=== PATIENT | female | born 1955 | race Hispanic/Latino ===

== ENCOUNTER 2020-10-21 11:58 | Emergency (ER) | payer OTHER ==
[2020-10-21 13:14] VITALS: BP 164/88
--- NOTE | 2020-10-21 13:42 | Event Note ---
ED Screening Note ED Screening Note: Patient is a 65-year-old female presents emergency room stating that she had COVID-19 in February She states that for a week she has had headache, fatigue, ear pain, cough, shortness of breath She denies any chest pain, fever, vomiting, diarrhea She states that for the last 2 to 3 days she has felt off balance She states that today she had tingling in her bilateral upper extremities and bilateral lower extremities She denies any vision changes, speech disturbance, unilateral weakness Past medical history of hypertension, hyperlipidemia, CVA in 2019 which she reports affected her left side This initial assessment/diagnostic orders/clinical plan/treatment(s) is/are subject to change based on patients health status, clinical progression and re- assessment by fellow clinical providers in the ED. Further treatment and workup at subsequent clinical providers discretion. Patient/guardian urged not to elope from the ED as their condition may be serious if not clinically assessed and managed. Initial orders include: labs, xr, ekg, ct head
--- NOTE | 2020-10-21 14:23 | XRay Report ---
CHEST 2 VIEWS INDICATION / CLINICAL INFORMATION: SOB, cough. COMPARISON: None available. FINDINGS: SUPPORT DEVICES: None. HEART / MEDIASTINUM: No significant abnormality. LUNGS / PLEURA: No significant pulmonary or pleural abnormality. No pneumothorax. ADDITIONAL FINDINGS: No significant additional findings. IMPRESSION: 1. No acute findings. Signer Name: Neville Casas MD Signed: 10/21/2020 2:18 PM Workstation Name: [id number]
--- NOTE | 2020-10-21 14:49 | Cat Scan Report ---
CT head/brain wo con INDICATION / CLINICAL INFORMATION: 65 years Female; feeling off balanace, tingling in the BUE/BLE. TECHNIQUE: Routine CT head without contrast. All CT scans at this location are performed using CT dos e reduction for ALARA by means of automated exposure control. COMPARISON: None. FINDINGS: There is extensive cerebral white matter disease most consistent with microvascular angiopathy. The v entricular system is within normal limits in size and configuration. The motion degrades the image qu ality. However, there is no clear CT evidence of acute intracranial hemorrhage or significant mass ef fect. There is increased attenuation along the visualized proximal intracranial vessels particularly the M1 segment though the findings appear to be related to atherosclerotic disease. ORBITS: No significant abnormality of visualized orbits. SINUSES / MASTOIDS: No significant abnormality in the visualized paranasal sinuses or mastoid air yiemi ls. CRANIOCERVICAL JUNCTION: No significant abnormality. ADDITIONAL FINDINGS: None. IMPRESSION: 1. There is extensive microvascular angiopathy as described without clear CT evidence of acute intrac ranial hemorrhage. Signer Name: Mitchel Ferreira MD Signed: 10/21/2020 2:45 PM Workstation Name: [id number]
[2020-10-21 15:00] LABS: Basophils % (Auto) 0.4 % (0.0-1.8); Eosinophils # (Auto) 0.2 K/mm3 (0.0-0.4); Eosinophils % (Auto) 3.1 % (0.0-4.3); Hematocrit 46.1 % (30.3-42.9); Hemoglobin 15.7 gm/dl (10.1-14.3); Lymphocytes # (Auto) 3.2 K/mm3 (1.2-5.4); Lymphocytes % (Auto) 43.2 % (13.4-35.0); Mean Corpuscular HGB Conc 34 % (30-34); Mean Corpuscular Volume 93 fl (79-97); Monocytes # (Auto) 0.7 K/mm3 (0.0-0.8); Monocytes % (Auto) 9.1 % (0.0-7.3); Platelet Count 273 K/mm3 (140-440); Red Blood Count 4.96 M/mm3 (3.65-5.03); Red Cell Distribution Width 13.8 % (13.2-15.2)
[2020-10-21 15:18] LABS: INR 0.88 (0.87-1.13)
[2020-10-21 15:19] LABS: Partial Thromboplastin Time 23.7 Sec. (24.2-36.6)
[2020-10-21 15:28] LABS: Alanine Aminotransferase 30 units/L (7-56); Albumin 4.2 g/dL (3.9-5); BUN/Creatinine Ratio 20; Blood Urea Nitrogen 16 mg/dL (7-17); Calcium 9.8 mg/dL (8.4-10.2); Hemolysis Index 19
--- NOTE | 2020-10-21 15:45 | Emergency Department Report ---
ED General Adult HPI - General Chief complaint: Neuro Symptoms/Deficit Stated complaint: DR SANTILLAN RESPIRATORY ISSUE Time Seen by Provider: 10/21/20 13:40 Source: patient Mode of arrival: Ambulatory Limitations: No Limitations - History of Present Illness Initial comments: 65-year-old female, history of hypertension, hyperlipidemia, CVA, previous COVID -19 infection in February, presents to ED with complaint of cough, chills, fatigue for last 3 days. Patient is unvaccinated against COVID-19. Patient also reports some headache, ear pain, tingling in her bilateral upper and lower extremities, and shortness of breath. Patient denies pain, diarrhea, chest pain, vision changes, slurred speech, weakness. Patient states she tried to get an appointment at her doctor's office but was unable to and advised to come to the ER. Patient has not gotten a Covid test since onset of symptoms. -: days(s) (3) Quality: other (Tingling) Consistency: constant Improves with: none Worsens with: none Associated Symptoms: cough, fever/chills, headaches, malaise, shortness of breath - Related Data Allergies Allergy/AdvReac Type Severity Reaction Status Date / Time No Known Allergies Allergy Unverified 10/21/20 13:07 ED Review of Systems ROS: Stated complaint: DR SANTILLAN RESPIRATORY ISSUE Other details as noted in HPI Comment: All other systems reviewed and negative Constitutional: chills, malaise ENT: ear pain Respiratory: cough, shortness of breath Gastrointestinal: denies: vomiting, diarrhea Neurological: headache, paresthesias ED Past Medical Hx - Past Medical History Previous Medical History?: Yes Hx Hypertension: Yes Hx Asthma: Yes - Surgical History Past Surgical History?: Yes Additional Surgical History: eye ED Physical Exam - General Limitations: No Limitations General appearance: alert, in no apparent distress - Head Head exam: Present: atraumatic, normocephalic - Eye Eye exam: Present: normal appearance, EOMI - ENT ENT exam: Present: mucous membranes moist - Neck Neck exam: Present: normal inspection - Respiratory Respiratory exam: Present: normal lung sounds bilaterally. Absent: respiratory distress - Cardiovascular Cardiovascular Exam: Present: regular rate, normal rhythm - GI/Abdominal GI/Abdominal exam: Present: soft. Absent: distended, tenderness - Extremities Exam Extremities exam: Present: normal inspection - Neurological Exam Neurological exam: Present: alert, oriented X3, CN II-XII intact. Absent: motor sensory deficit - Psychiatric Psychiatric exam: Present: normal affect, normal mood - Skin Skin exam: Present: warm, dry, intact, normal color ED Course Vital Signs 10/21/20 13:10 Temperature 97.9 F Pulse Rate 58 L Respiratory 18 Rate Blood Pressure 164/88 O2 Sat by Pulse 94 Oximetry ED Medical Decision Making - Lab Data Result diagrams: 10/21/20 14:45 10/21/20 14:45 - Radiology Data Radiology results: report reviewed, image reviewed - Medical Decision Making 65-year-old female presents to ED with cough, chills, fatigue x3 days. Patient is unvaccinated against COVID-19. Patient had previous COVID-19 infection in February and states that this feels similar, however patient has not been tested for COVID-19 in the last 3 days. Patient also reporting some tingling in both arms and legs, along with some shortness of breath. CT head negative for any acute findings. Patient has no focal neuro deficits. Chest x-ray is negative for any acute findings. O2 sats normal, patient is in no respiratory distress. Labs are normal. Patient advised to obtain outpatient COVID-19 testing and quarantine as necessary. Outpatient follow-up with her PCP as advised, return precautions given. - Differential Diagnosis Pneumonia, viral illness, COVID-19 Critical care attestation.: If time is entered above; I have spent that time in minutes in the direct care of this critically ill patient, excluding procedure time. ED Disposition Clinical Impression: Viral illness Disposition: 01 HOME / SELF CARE / HOMELESS Is pt being admited?: No Condition: Stable Instructions: COVID-19, Viral Illness, Adult Additional Instructions: Please obtain outpatient COVID-19 testing. Quarantine as required. Please purchase a pulse oximeter to monitor your oxygen level. Return to ER if oxygen is less than 90%. Azng-yce-wxeyyoi vitamin C, vitamin D, and zinc have been recommended to boost your immune system against COVID-19 infection. Take as directed on the bottles. Referrals: LILIAN ROBBINS MD [Primary Care Provider] - 3-5 Days Time of Disposition: 15:46
== END 2020-10-21 16:06 | disposition home or self-care (01) ==
LOC: ED 11:58
DX: B33.8 Other specified viral diseases (principal); I10 Essential (primary) hypertension; J45.909 Unspecified asthma, uncomplicated; Z86.16 Personal history of COVID-19
CPT/HCPCS: 36415; 70450; 71046; 80053; 82550; 83735; 84443; 85025; 85610; 85730; 99284